=== PATIENT | female | born 1990 | race Caucasian/White ===

== ENCOUNTER → 2016-06-07 | Outpatient (CLI) | payer OTHER | LOC: LAB 15:30 | DX: Z02.89 Encounter for other administrative examinations (principal) | CPT/HCPCS: 86706 ==

== ENCOUNTER → 2020-09-16 | Outpatient (CLI) | payer OTHER ==
[~2020-09-16] MED LIST: COLACE 100MG C100 MG PO
== END ==
LOC: KOH-I 09-11 08:00
DX: M25.572 Pain in left ankle and joints of left foot (principal); G89.29 Other chronic pain; S99.912A Unspecified injury of left ankle, initial encounter; S82.62XD Displaced fracture of lateral malleolus of left fibula, subsequent encounter for closed fracture with routine healing
CPT/HCPCS: 73721

== ENCOUNTER 2021-09-06 17:44 | Emergency (ER) | payer OTHER ==
[2021-09-06 18:43] LABS: HEMOGLOBIN 13.1 gm/dl (12.3-15.3); RED BLOOD COUNT 4.5 M/UL (4.00-5.10); WHITE BLOOD COUNT 7.4 K/UL (4.5-11.0)
[2021-09-06 19:05] LABS: BUN/CREATININE RATIO 18 (0-10)
[2021-09-06] MEDS ORDERED: PROVERA10 MG PO (19:30)
== END 2021-09-06 20:22 | disposition home or self-care (01) ==
LOC: ER1 17:44
PROVIDERS: Nurse Practitioner
DX: N93.9 Abnormal uterine and vaginal bleeding, unspecified (principal)
CPT/HCPCS: 80053; 81001; 83690; 84703; 85025; 86850; 86900; 86901; 96374; 96375; 99284; J1170; J2405